=== PATIENT | male | born 1955 | race African-American/Black ===

== ENCOUNTER 2023-11-28 14:26 | Emergency (ER) | payer OTHER | END 2023-11-28 15:05 | LOC: EEVIPCON 14:26 → NAV ERS 14:26 | DX: S22.32XA Fracture of one rib, left side, initial encounter for closed fracture (principal); E11.22 Type 2 diabetes mellitus with diabetic chronic kidney disease; I12.9 Hypertensive chronic kidney disease with stage 1 through stage 4 chronic kidney disease, or unspecified chronic kidney disease; N18.9 Chronic kidney disease, unspecified; B20 Human immunodeficiency virus [HIV] disease; Z79.899 Other long term (current) drug therapy; Z79.82 Long term (current) use of aspirin; W22.8XXA Striking against or struck by other objects, initial encounter ==